=== PATIENT | female | born 1990 | race African-American/Black ===

== ENCOUNTER → 2017-05-14 | Outpatient (REF) ==
[~2017-05-14] MED LIST: AMOXICILLIN 8751 TAB PO; BIRTH CONTROL PILLS; NO HOME MEDICATIONS; PEPCID 20MG TAB20 MG PO; PREDNISONE20 MG PO; TESSALON PERLE100 MG PO; VISTARIL50 MG PO
== END ==
LOC: WSOH 13:36 → WSPT 14:45
DX: Z02.1 Encounter for pre-employment examination (principal)